=== PATIENT | male | born 1945 | race Caucasian/White ===

== ENCOUNTER → 2017-12-17 06:28 | Outpatient (CLI) | payer MEDICARE, SELFPAY ==
--- NOTE | 2017-12-17 06:39 | NM_ITS ---
SPECT MYOCARDIAL PERFUSION SCAN, REST AND STRESS: EXERCISE STRESS: [facility] REVIEW QGS EF AND WALL MOTION EVALUATION: QPS - PERFUSION EVALUATION: HISTORY: SOB, Fatigue, HTN, DM PROCEDURE: Rest imaging performed after administration of10.07 millicuries Tc MIBI. Dose administered at6:45 a.m., with imaging thereafter. Stress imaging was then performed following5 minutes 30 seconds of exercise stress. The patient achieved a heart [id number] with projected heart rate of127 . Resting BP153/79 with stress 180/76. At maximum exercise stress,31.4 millicuries Tc MIBI administered at8:20 a.m. with [id number] minutes thereafter. FINDINGS: Perfusion Evaluation: The single slice spect images as well as the [facility] bull's-eye data summary were reviewed. Wall Motion and Ejection Fraction Evaluation: Gated SPECT review and analysis used to evaluate these features. There is a 58 % left ventricular ejection fraction. There seems to be good wall motion Stress images reveal severely decreased activity in the septum and apex and throughout the inferior wall. Rest images reveal slightly improved activity in all 3 areas. Gated images calculated ejection fraction of 58% with apical and inferior apical hypokinesis IMPRESSION: High risk abnormal stress test. 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
--- NOTE | 2017-12-17 07:47 | HMH.ITSHM ---
VALSARTAN MELOXICAM FENOFIBRATE SIMVASTATIN GLIMEPIRIDE METFORMIN TRESIBA RANITIDINE FINASTERIDE AMLODIPINE HYDROCHLOROTHIAZIDE CARVEDILOL
== END ==
PROVIDERS: Family Provider Internal Medicine Adolescent Medicine; PCP Internal Medicine Adolescent Medicine; Visit Provider Internal Medicine Adolescent Medicine
DX: R06.09 Other forms of dyspnea (principal)
CPT/HCPCS: 78452; 93017; A9502

== ENCOUNTER → 2019-01-20 07:42 | Outpatient (CLI) | payer MEDICARE, SELFPAY ==
--- NOTE | 2019-01-20 | CA_ITS ---
APPROVED REPORT Exam: Pharmacologic Technologist: Lisa Fitzpatrick, Ht: 5 ft 5 in Wt: 195 lbs BSA: 1.96 m2 HR: 65 bpm BP: 164/73 mmHg Indications: Shortness of Breath Medical History Medications: Amlodipine,,,,, Aspirin,,,,, Metformin,,,,, Glimepiride,,,,, Ranitidine,,,,, Carvedilol,,,,, Valsartan,,,,, FeNOfibrate,,,,, Finasteride,,,,, DiPHENHYDRAMINE,,,,, RoSUVASTATIN,,,,, Degludec,,,,, Stress Test Details Test: LEXISCAN HR Resting HR: 65 bpm Max Heart Rate (APMHR): 148 bpm Max HR Achieved: 88 bpm Target HR (85% APMHR): 125 bpm % of APMHR: 59 Recovery HR: 77 bpm BP Resting BP: 164/73 mmHg Max BP: 168/73 mmHg Recovery BP: 154.0/68.0 mmHg ECG Clinical Exercise duration: 04:02 min Highest Stage Achieved: Exercise capacity: 1.0 METs Stress ECG Conclusion Resting ECG: Normal sinus rhythm, PACs Symptoms: Mild shortness of air, malaise Arrhythmias/Ectopy: None ST-T Changes: No significant changes Conclusion: Unremarkable Lexiscan Stress. Myoview images reported separately. Electronically signed by : Bebeto Saxena, 01/23/2019 09:23:46
--- NOTE | 2019-01-20 07:44 | NM_ITS ---
APPROVED REPORT Exam: Nuclear Stress Test Indication: SOB, HTN, DM, Family hx, Pre op Patient Location: Outpatient Stress Tech: Lisa Amari [place] Tech:Saskia Eldridge, ARRT, RT (R)(N) Ht: 5 ft 5 in Wt: 195 lbs BSA: 1.96 m2 HR: 65 bpm BP: 164/73 mmHg BMI: 32.4 History: SOB, HTN, DM, Family hx, Pre op Procedure: Patient received a 0.4 mg of intravenous Lexiscan, resting heart rate 65 bpm, resting blood pressure 164/73 mmHg, with Lexiscan maximum heart rate achived was 88 bpm which is Less than 85 % of the maximum predicted heart rate and blood pressure was 168/73 mmHg. With Lexiscan, patient denied any complaint of chest pain. Electrocardiogram Resting electro cardiogram showed sinus rhythm, with Lexiscan there is less than 1.[address] segment depression noted from the baseline EKG. The EKG portion of the Lexiscan is nondiagnostic. Cardiac Stress and Resting SPECT Images: Cardiac Stress and Resting SPECT images were obtained using technetium 99m Myoview 29 mCi stress and 10 mCi at rest. Gated SPECT with analysis of segmental wall motion and calculation of the ejection fraction also done. Cardiac stress and resting SPECT images show uniform myocardial activity without segmental perfusion abnormality, computer derived ejection fraction is over 65% with no regional wall motion abnormality, right ventricle is normal size and contractility. Conclusion: 1. The EKG portion of the Lexiscan is nondiagnostic. 2. No scintigraphic evidence of reversible ischemia seen, computer derived ejection fraction is over 65% with no regional wall motion abnormality, right ventricle is normal size and contractility. 3. Normal Lexiscan Myoview study. Electronically signed by : Bebeto Saxena, 01/22/2019 15:58:20
--- NOTE | 2019-01-20 08:45 | CA_ITS ---
APPROVED REPORT EXAM: Comprehensive 2D, Doppler, and color-flow Echocardiogram Site Engineer: Tara Albert CRT Ht: 5 ft 5 in Wt: 198lbs BSA: 1.97 BP: 147/69 mmHg Indications: Pulmonary Hypertension, Shortness of Breath, CAD, Hyperlipidemia, Hypertension/HDD 2D Dimensions LVOT 2.00 cm (M/F) 1.5-2.5 M-Mode Dimensions RVDd 2.10 cm (0.9-2.6) LA Diam 4.10 cm (1.9-4.0) LVDd 4.80 cm (3.5-5.7) Ao Diam 3.50 cm (2.0-3.7) LVDs 2.80 cm (3.5-5.7) AV Cusp 2.00 cm (1.5-2.6) IVSd 1.60 cm (0.6-1.1) PWd 0.90 cm (0.6-1.1) EF (Teich) 72.60% FS 41.70% EDV (Teich) 108.00 mL ESV (Teich) 29.60 mL LV Diastology E/A Ratio 0.80 MED E' 5.46 (< 7 cm/sec) E'/MED E' Ratio 16.20 (>14) LAT E' 6.34 (<10 cm/sec) E/LAT E' Ratio 13.90 (>14) Aortic Valve AoV Peak Patrick. 153.00 (50-130 cm/s) AO Peak GR. 9.00 mmHg Mitral Valve MV E Max Patrick. 88.40 (40-130 cm/s) MV A Velocity 109.00 (40-130 cm/s) E/A Ratio 0.80 Pulmonary Valve PA Accel Time 123.00 (>120 msec) Tricuspid Valve TR P. Velocity 233.00 cm/s RAP Estimate 10.00 mmHg RVSP 32.00 mmHg Left Ventricle Left atrium is mildly enlarged, left ventricle is normal size, mild concentric left ventricular hypertrophy, visually estimated ejection fraction 55% with no regional wall motion abnormality, grade 1 diastolic dysfunction seen with tissue Doppler evidence of raise left atrial pressure. Right Ventricle Right atrium and right ventricle mildly enlarged with normal contractility. Aortic Valve Aortic valve is minimally thickened and fibrosed. There is no aortic stenosis or aortic insufficiency. Mitral Valve Mitral valve is grossly normal, there is mild mitral regurgitation. Tricuspid Valve There is mild tricuspid regurgitation noted, calculated right ventricular systolic pressure is 48 mmHg consistent with moderate pulmonary hypertension. Pulmonic Valve Pulmonic valve is poorly visualized. Great Vessels Aortic root is normal size. Pericardium No significant pericardial effusion noted. Conclusion 1. Biatrial enlargement, normal left ventricular size, mild concentric left ventricular hypertrophy, visually estimated ejection fraction 55% with no regional wall motion abnormality, grade 1 diastolic dysfunction seen with tissue Doppler evidence of raise left atrial pressure. 2. Mildly enlarged right ventricle with normal contractility. 3. Mild mitral and tricuspid regurgitation, calculated right ventricular systolic pressure is 48 mmHg consistent with moderate pulmonary hypertension. 4. No significant pericardial effusion noted. Electronically signed by : Bebeto Saxena, 01/23/2019 17:53:26
== END ==
PROVIDERS: PCP Internal Medicine Adolescent Medicine; Visit Provider Urology
DX: E11.9 Type 2 diabetes mellitus without complications (principal); I10 Essential (primary) hypertension; I11.9 Hypertensive heart disease without heart failure; I25.10 Atherosclerotic heart disease of native coronary artery without angina pectoris; I27.20 Pulmonary hypertension, unspecified; R06.02 Shortness of breath; Z01.818 Encounter for other preprocedural examination; Z87.891 Personal history of nicotine dependence; Z79.4 Long term (current) use of insulin; Z79.84 Long term (current) use of oral hypoglycemic drugs
CPT/HCPCS: 78452; 93017; 93306; A9502; J2785

== ENCOUNTER → 2019-01-28 14:14 | Outpatient (CLI) | payer MEDICARE, SELFPAY ==
--- NOTE | 2019-01-28 14:19 | XR_ITS ---
PROCEDURE: XR CHEST 2V CLINICAL HISTORY: OA, DENNISON, CAD, PRE OP Shortness of breath COMPARISON: No exams were available for comparison FINDINGS: Mild cardiomegaly without failure. The lungs are clear without infiltrates, suspicious nodules, or pleural effusions. There is a faint nodular opacity in the right lung base laterally at 5 mm and may be due to a granuloma. No acute bony findings. There are degenerative changes in the thoracic spine. IMPRESSION: Mild cardiomegaly, no acute finding Dictated by: Jose Manuel Dixon MD 01/28/2019 16:29 Electronically signed by Jose Manuel Dixon MD in [place] 01/28/2019 16:29
== END ==
PROVIDERS: PCP Internal Medicine Adolescent Medicine; Visit Provider Nurse Practitioner Family
DX: Z01.818 Encounter for other preprocedural examination (principal); M17.12 Unilateral primary osteoarthritis, left knee; R06.09 Other forms of dyspnea; I25.10 Atherosclerotic heart disease of native coronary artery without angina pectoris
CPT/HCPCS: 71046

== ENCOUNTER 2019-04-21 16:30 | Outpatient (RCR) | payer MEDICARE, SELFPAY | END 2019-05-05 09:50 | disposition home or self-care (01) | LOC: PT.CARL 16:30 | PROVIDERS: Visit Provider Orthopaedic Surgery | DX: M17.12 Unilateral primary osteoarthritis, left knee (principal); Z96.652 Presence of left artificial knee joint | CPT/HCPCS: 97014; 97110; 97112; 97116; 97140; 97163; G0283 ==

== ENCOUNTER → 2019-11-13 11:45 | Outpatient (CLI) | payer MEDICARE, SELFPAY ==
--- NOTE | 2019-11-13 11:53 | CA_ITS ---
APPROVED REPORT Bilateral Lower Extremity Venous Study for DVT. 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 Incidental findings of enlarged lymph nodes in groin and posterior knee Conclusion No evidence of DVT or superficial thrombophlebitis in the veins scanned of the right lower extremity. Electronically signed by : Jose Manuel Dixon MD 11/16/2019 16:56:54
== END ==
PROVIDERS: PCP Nurse Practitioner Family; Visit Provider Internal Medicine Adolescent Medicine
DX: M79.89 Other specified soft tissue disorders (principal); M79.604 Pain in right leg
CPT/HCPCS: 93971

== ENCOUNTER → 2020-03-14 13:01 | Outpatient (CLI) | payer MEDICARE, SELFPAY ==
--- NOTE | 2020-03-14 13:07 | XR_ITS ---
PROCEDURE: XR CHEST PORTABLE CLINICAL HISTORY: COVID OUTPATIENT Cough and congestion COMPARISON: DX XR CHEST 2V from 01/28/2019 FINDINGS: The cardiomediastinal silhouette and pulmonary vascularity are within normal limits. There is peripheral increased density in the left mid and lower lung zone consistent with pneumonia. There is also patchy density in the right midlung. Mild degenerative changes of the shoulders. IMPRESSION: Consolidation in the left mid and lower lung zone laterally and right midlung consistent with bilateral pneumonia. Suggest following till clear regarding left-sided density as other pathologies are not excluded. Dictated by: Jose Manuel Dixon MD 03/14/2020 13:49 Jose Manuel Dixon MD in [place] 03/14/2020 13:49
[2020-03-14 13:47] LABS: Basophils % 0.5 % (0.1-2.0); Eosinophils # 0.2 K/mm3 (0.0-0.4); Eosinophils % 2.2 % (0.1-12.0); Hematocrit 34.4 % (42.0-52.0); Lymphocytes # 0.7 K/mm3 (0.7-4.5); Mean Corpuscular HGB Conc 34.9 g/dL (31.8-35.4); Mean Corpuscular Hemoglobin 32.3 pg (27.0-31.2); Mean Corpuscular Volume 92.5 fl (80-94); Mean Platelet Volume 8.6 fl (7.4-10.4); Monocytes # 0.5 K/mm3 (0.1-1.0); Monocytes % 6.8 % (1.7-9.3); Neutrophils # 5.3 K/mm3 (1.8-7.8); Neutrophils % 79.6 % (37.0-80.0); Platelet Count 318 K/mm3 (142-424); Red Blood Count 3.71 M/mm3 (4.60-6.20); Red Cell Distribution Width 13.6 % (11.5-17.5); White Blood Count 6.7 K/mm3 (4.8-10.8)
[2020-03-14 13:55] LABS: Chloride 100 mmol/L (98-107); Potassium 4.7 mmoL/L (3.5-5.1); Sodium 137 mmol/L (136-145)
[2020-03-14 13:58] LABS: Alanine Aminotransferase 26 U/L (12-78); Albumin Level 3.9 g/dl (3.5-5.0); Albumin/Globulin Ratio 1.3 (1.1-1.8); Alkaline Phosphatase 50 U/L (38-126); Anion Gap 16.7 mEq/L (5-15); Aspartate Amino Transferase 41 U/L (17-59); Bilirubin,Total 0.7 mg/dl (0.2-1.3); Blood Urea Nitrogen 39 mg/dl (9-20); Calcium 9.3 mg/dl (8.4-10.2); Carbon Dioxide 25 mmol/L (22.0-30.0); Estimated Glomerular Filt Rate 40 ml/min (>60); GFR (African American) 48 ML/MIN (>60); Glucose 243 mg/dl (74-100); Total Protein,Serum 6.9 g/dl (6.3-8.2)
[2020-03-14 14:49] LABS: Erythrocyte Sedimentation Rate 122 mm/hr (0-20)
[2020-03-14 18:24] LABS: Coronavirus 19 IgG Antibody Positive (Negative)
[2020-03-14 18:27] LABS: Coronavirus 19 IgM Antibody Positive (Negative)
== END ==
PROVIDERS: PCP Nurse Practitioner Family; Visit Provider Internal Medicine Adolescent Medicine
DX: Z20.828 Contact with and (suspected) exposure to other viral communicable diseases (principal); U07.1 COVID-19; R05 Cough
CPT/HCPCS: 71045; 80053; 85025; 85651; 86328; U0003

== ENCOUNTER → 2020-09-21 15:09 | Outpatient (CLI) | payer MEDICARE, SELFPAY ==
[2020-09-21 15:43] LABS: Basophils # 0.1 K/mm3 (0-0.2); Eosinophils # 0.5 K/mm3 (0.0-0.4); Eosinophils % 6.1 % (0.1-12.0); Hematocrit 38.1 % (42.0-52.0); Hemoglobin 12.6 g/dL (14.1-18.0); Lymphocytes # 1.7 K/mm3 (0.7-4.5); Lymphocytes % 20.7 % (10-50); Mean Corpuscular HGB Conc 33.2 g/dL (31.8-35.4); Mean Corpuscular Volume 90.2 fl (80-94); Mean Platelet Volume 9.6 fl (7.4-10.4); Monocytes # 0.7 K/mm3 (0.1-1.0); Monocytes % 8.3 % (1.7-9.3); Neutrophils # 5.3 K/mm3 (1.8-7.8); Neutrophils % 63.9 % (37.0-80.0); Platelet Count 220 K/mm3 (142-424); Red Blood Count 4.22 M/mm3 (4.60-6.20); White Blood Count 8.3 K/mm3 (4.8-10.8)
[2020-09-21 16:08] LABS: Alanine Aminotransferase 36 U/L (12-78); Albumin Level 4.9 g/dl (3.5-5.0); Alkaline Phosphatase 58 U/L (38-126); Anion Gap 14.4 mEq/L (5-15); Aspartate Amino Transferase 40 U/L (17-59); Bilirubin,Total 0.5 mg/dl (0.2-1.3); Blood Urea Nitrogen 21 mg/dl (9-20); Calcium 9.8 mg/dl (8.4-10.2); Carbon Dioxide 27 mmol/L (22.0-30.0); Chloride 105 mmol/L (98-107); Chol/HDL Ratio 4.5 (1-3.5); Cholesterol 148 mg/dl (140-200); Estimated Glomerular Filt Rate 46 ml/min (>60); GFR (African American) 55 ML/MIN (>60); Globulin 2.5 g/dL (1.3-3.2); Glucose 112 mg/dl (74-100); HDL Cholesterol 33 mg/dl (40-60); Potassium 4.4 mmoL/L (3.5-5.1); Sodium 142 mmol/L (136-145); Total Protein,Serum 7.4 g/dl (6.3-8.2); Triglycerides 189 mg/dl (30-150); VLDL Cholesterol 38 mg/dL (0-40)
[2020-09-21 16:19] LABS: Direct LDL Cholesterol 82.05 mg/dL (100-129)
[2020-09-21 16:24] LABS: Hemoglobin A1C 8.2 % (4.0-6.0)
[2020-09-21 16:38] LABS: Prostate Specific Ag Screen 2.1 ng/ml (0.0-4.0)
[2020-09-22 12:26] LABS: 25-OH Vitamin D, Total 53.7 ng/mL (30-100)
== END ==
PROVIDERS: Visit Provider Nurse Practitioner Family
DX: I10 Essential (primary) hypertension (principal); E78.2 Mixed hyperlipidemia; E53.8 Deficiency of other specified B group vitamins; E55.9 Vitamin D deficiency, unspecified; E11.29 Type 2 diabetes mellitus with other diabetic kidney complication; N40.1 Benign prostatic hyperplasia with lower urinary tract symptoms; Z79.4 Long term (current) use of insulin; Z12.5 Encounter for screening for malignant neoplasm of prostate
CPT/HCPCS: 80053; 80061; 82306; 82652; 83036; 85025; G0103

== ENCOUNTER → 2020-11-08 09:19 | Outpatient (CLI) | payer MEDICARE, SELFPAY ==
--- NOTE | 2020-11-08 09:22 | CA_ITS ---
APPROVED REPORT EXAM: Comprehensive 2D, Doppler, and color-flow Echocardiogram Track Leader: Angelia Palacio RVT Ht: 5 ft 5 in Wt: 202lbs BSA: 1.99 BP: 123/60 mmHg Indications: SOA,HTN,HLD,EX SMOKER,CAD,DD,GERD,PHTN 2D Dimensions LVOT 2.06 cm (M/F) 1.5-2.5 LA Volume 35.10 mL LA Volume Index 17.72 mL/m2 (M/F) 16-34 M-Mode Dimensions RVDd 2.25 cm (0.9-2.6) LA Diam 4.16 cm (1.9-4.0) LVDd 4.75 cm (3.5-5.7) Ao Diam 3.09 cm (2.0-3.7) LVDs 2.90 cm (3.5-5.7) IVSd 1.37 cm (0.6-1.1) PWd 1.09 cm (0.6-1.1) EF (Teich) 69.30% FS 38.90% EDV (Teich) 104.90 mL TAPSE 3.05 (<1.7) ESV (Teich) 32.20 mL LV Diastology E Decel Time 333.00 (160-240 msec) E/A Ratio 0.7 MED E' 6.20 (< 7 cm/sec) E'/MED E' Ratio 14.69 (>14) LAT E' 6.00 (<10 cm/sec) E/LAT E' Ratio 15.18 (>14) Aortic Valve AO Peak GR. 10.70 mmHg Mitral Valve MV E Max Patrick. 91.00 (40-130 cm/s) MV A Velocity 127.00 (40-130 cm/s) E/A Ratio 0.72 MV Decel. Time 333.00 (160-240 ms) MV PHT 98.00 ms Pulmonary Valve PV Peak Velocity 78.00 (50-150 cm/s) Tricuspid Valve TR P. Velocity 247.00 cm/s RAP Estimate 10.00 mmHg RVSP 34.40 mmHg Left Ventricle Left atrium is mildly enlarged, left ventricle is normal size, mild concentric left ventricular hypertrophy, visually estimated ejection fraction 55% with no regional wall motion abnormality, grade 1 diastolic dysfunction seen with tissue Doppler evidence of raise left atrial pressure. Right Ventricle Right atrium and right ventricle are normal size and contractility. Aortic Valve Aortic valve is thickened and calcified without aortic stenosis or aortic insufficiency. Mitral Valve Mitral valve grossly normal, there is trace mitral regurgitation. Tricuspid Valve Tricuspid grossly normal, there is trace tricuspid regurgitation, tricuspid regurgitation jet velocity is inadequate for calculation of the right ventricular systolic pressure. Pulmonic Valve Pulmonic valve is poorly visualized. Great Vessels Aortic root is normal size. Pericardium No significant pericardial effusion noted. Conclusion 1. Mildly enlarged left atrium, normal left ventricular size, mild concentric left ventricular hypertrophy, visually estimated ejection fraction 55% with no regional wall motion abnormality, grade 1 diastolic dysfunction seen with tissue Doppler evidence of raise left atrial pressure. 2. Thickened and calcified aortic valve without aortic stenosis or aortic insufficiency. 3. Trace mitral and tricuspid regurgitation. 4. No significant pericardial effusion noted. Electronically signed by : Bebeto Saxena, 11/08/2020 21:36:49
== END ==
PROVIDERS: PCP Nurse Practitioner Family; Visit Provider Nurse Practitioner Family
DX: E11.9 Type 2 diabetes mellitus without complications (principal); E78.2 Mixed hyperlipidemia; I11.9 Hypertensive heart disease without heart failure; I25.10 Atherosclerotic heart disease of native coronary artery without angina pectoris; I27.20 Pulmonary hypertension, unspecified; R06.02 Shortness of breath; Z87.891 Personal history of nicotine dependence; Z79.4 Long term (current) use of insulin
CPT/HCPCS: 93306

== ENCOUNTER → 2021-04-12 20:19 | Outpatient (CLI) | payer MEDICARE, SELFPAY ==
[2021-04-12 20:47] LABS: Basophils # 0.1 K/mm3 (0-0.2); Basophils % 0.7 % (0.1-2.0); Eosinophils # 0.3 K/mm3 (0.0-0.4); Eosinophils % 3.6 % (0.1-12.0); Hematocrit 38.6 % (42.0-52.0); Hemoglobin 12.8 g/dL (14.1-18.0); Lymphocytes # 1.8 K/mm3 (0.7-4.5); Lymphocytes % 22.1 % (10-50); Mean Corpuscular Hemoglobin 31.3 pg (27.0-31.2); Mean Corpuscular Volume 94.7 fl (80-94); Mean Platelet Volume 9.6 fl (7.4-10.4); Monocytes # 0.5 K/mm3 (0.1-1.0); Monocytes % 6.7 % (1.7-9.3); Neutrophils # 5.3 K/mm3 (1.8-7.8); Neutrophils % 66.8 % (37.0-80.0); Platelet Count 259 K/mm3 (142-424); Red Blood Count 4.08 M/mm3 (4.60-6.20)
[2021-04-12 20:54] LABS: Alanine Aminotransferase 27 U/L (12-78); Albumin Level 4.4 g/dl (3.5-5.0); Albumin/Globulin Ratio 1.7 (1.1-1.8); Alkaline Phosphatase 65 U/L (38-126); Anion Gap 13.3 mEq/L (5-15); Aspartate Amino Transferase 55 U/L (17-59); Bilirubin,Total 0.3 mg/dl (0.2-1.3); Blood Urea Nitrogen 28 mg/dl (9-20); Calcium 9.6 mg/dl (8.4-10.2); Carbon Dioxide 28 mmol/L (22.0-30.0); Chloride 103 mmol/L (98-107); Estimated Glomerular Filt Rate 46 ml/min (>60); GFR (African American) 55 ML/MIN (>60); Globulin 2.6 g/dL (1.3-3.2); Glucose 195 mg/dl (74-100); Potassium 4.3 mmoL/L (3.5-5.1); Sodium 140 mmol/L (136-145)
[2021-04-12 21:13] LABS: Hemoglobin A1C 7.8 % (4.0-6.0)
[2021-04-12 21:43] LABS: Vitamin B12 680 pg/mL (239-931)
== END ==
PROVIDERS: Visit Provider Nurse Practitioner Family
DX: E11.9 Type 2 diabetes mellitus without complications (principal); E53.8 Deficiency of other specified B group vitamins; E55.9 Vitamin D deficiency, unspecified; Z79.4 Long term (current) use of insulin
CPT/HCPCS: 80053; 82306; 82607; 83036; 85025

== ENCOUNTER 2021-10-06 06:43 | Observation (INO) | payer MEDICARE, SELFPAY ==
[2021-10-06] VITALS (8 sets, daily range): BP systolic 167–177; BP diastolic 54–87; PULSE 59–101; RESP 15–21; TEMP 36.4–37; O2SAT 93–99; BMI 36.6; BMI 32.4
--- NOTE | 2021-10-06 06:56 | CT_ITS ---
FINAL REPORT CLINICAL HISTORY: abd pain/left flank pain FINDINGS: CT OF THE ABDOMEN AND PELVIS WITH CONTRAST Axial CT images of the abdomen and pelvis were obtained after the administration of IV contrast. Coronal reformatted images were also obtained and reviewed.This study was performed with techniques to keep radiation doses as low as reasonably achievable (ALARA). Individualized dose reduction techniques using automated exposure control or adjustment of mA and/or kV according to the patient's size were employed. Abdomen: There is mild bibasilar atelectasis. The heart is normal in size. The liver has an unremarkable appearance, without evidence of mass or biliary ductal dilatation. The spleen is unremarkable. No adrenal mass is present. The pancreas has an unremarkable appearance. There is moderate left hydronephrosis secondary to a 3 mm proximal left ureteral stone seen at the L3-4 level. The aorta is normal in caliber. There is no free fluid or adenopathy. No mass or abnormal fluid collection is seen. Pelvis: The appendix normal. The urinary bladder is unremarkable. No inflammatory process is seen. There is no evidence of mass or adenopathy. There is no evidence of bowel obstruction. The prostate is diffusely enlarged. IMPRESSION: Left ureteral stone with hydronephrosis. Diffusely enlarged prostate. Reviewed, Interpreted and Dictated by Gabino Denny III, MD Transcribed by Monae Verdugo Authenticated by Gabino Denny III, MD on 10/06/2021 08:54:35 AM [facility]
--- NOTE | 2021-10-06 07:05 | PC.NURSE ---
up to bathroom
[2021-10-06 07:09] LABS: Basophils # 0.1 K/mm3 (0-0.2); Basophils % 1.5 % (0.1-2.0); Eosinophils # 0.3 K/mm3 (0.0-0.4); Eosinophils % 3.1 % (0.1-12.0); Hematocrit 40.5 % (42.0-52.0); Hemoglobin 13.6 g/dL (14.1-18.0); Lymphocytes # 1.3 K/mm3 (0.7-4.5); Lymphocytes % 15.7 % (10-50); Mean Corpuscular HGB Conc 33.5 g/dL (31.8-35.4); Mean Corpuscular Hemoglobin 31.2 pg (27.0-31.2); Mean Corpuscular Volume 93.1 fl (80-94); Mean Platelet Volume 8.8 fl (7.4-10.4); Monocytes # 0.6 K/mm3 (0.1-1.0); Monocytes % 7.2 % (1.7-9.3); Neutrophils % 72.5 % (37.0-80.0); Platelet Count 244 K/mm3 (142-424); Red Blood Count 4.35 M/mm3 (4.60-6.20); Red Cell Distribution Width 14.5 % (11.5-17.5); White Blood Count 8.3 K/mm3 (4.8-10.8)
[2021-10-06 07:17] LABS: Microscopic, Urine URINE MICROSCOPIC (MICROSCOPIC)
--- NOTE | 2021-10-06 07:17 | ECG_ITS ---
APPROVED REPORT Exam: Resting ECG HR:57 bpm ECG Measurements Heart Rate 57 AXES [place] 176 P 26 QRSd 98 QRS -26 QT 430 T 27 QTc 425 Conclusion SINUS BRADYCARDIA WITH SINUS ARRHYTHMIA BORDERLINE LEFT AXIS DEVIATION [QRS AXIS < -20] BORDERLINE ECG UNCONFIRMED REPORT Electronically signed by : Chema Garcias MD 10/07/2021 16:01:35
[2021-10-06 07:18] LABS: Alanine Aminotransferase 43 U/L (12-78); Albumin Level 4.9 g/dl (3.5-5.0); Albumin/Globulin Ratio 1.6 (1.1-1.8); Alkaline Phosphatase 70 U/L (38-126); Amylase 56 U/L (30-110); Anion Gap 15.1 mEq/L (5-15); Aspartate Amino Transferase 44 U/L (17-59); Bilirubin,Total 0.3 mg/dl (0.2-1.3); Blood Urea Nitrogen 26 mg/dl (9-20); Calcium 10.3 mg/dl (8.4-10.2); Carbon Dioxide 25 mmol/L (22.0-30.0); Chloride 107 mmol/L (98-107); Creatinine Clearance Estimated 56 mL/min (50-200); Estimated Glomerular Filt Rate 42 ml/min (>60); GFR (African American) 51 ML/MIN (>60); Glucose 204 mg/dl (74-100); Lipase 176 U/L (23-300); Potassium 4.1 mmoL/L (3.5-5.1); Sodium 143 mmol/L (136-145); Total Protein,Serum 7.9 g/dl (6.3-8.2)
[2021-10-06 07:19] LABS: Lactic Acid 1.7 mmol/L (0.7-2.1)
[2021-10-06 07:22] LABS: Appearance,Urine CLEAR (Clear); Bilirubin,Urine Negative (Negative); Blood, Urine TRACE-I (Negative); Color,Urine YELLOW (Yellow); Glucose,Urine (UA) 1+ (Negative); Ketones,Urine Negative (Negative); Leukocyte Esterase,Urine Negative (Negative); Nitrate,Urine Negative (Negative); Protein,Urine 1+ (Negative); Specific Gravity, Urine 1.015 (1.005-1.030); Urobilinogen,Urine 0.2 EU/dl (0.2)
[2021-10-06 07:31] LABS: Troponin I < 0.01 ng/ml (0.00-0.034)
[2021-10-06 07:35] LABS: Procalcitonin 0.068 ng/mL (0.0-2.0)
--- NOTE | 2021-10-06 07:35 | HMH.EDNVD ---
ED Disposition Clinical Impression: Renal colic on left side Disposition: Admitted As Inpatient Condition on Discharge: Good Instructions: DI for Acute Abdominal Pain Referrals: Dilia Huizar APRN [Primary Care Provider] - - Critical Care Critical Care Time: No Attestation: On 10/06/21, the high probability of a clinically significant, sudden or life threatening deterioration of the following system(s) required my full and direct attention, intervention and personal management. The time I documented below is in addition to time spent performing reported procedures but includes the following listed in this critical care notation. Medical Decision Making - Medical Records Medical records reviewed: Yes: I reviewed the patient's medical records. - Stephon Inquiry Pt receiving controlled substance: No Vital Signs: 10/06/21 06:50 10/06/21 07:19 Temperature 97.7 F Temperature Source Oral Pulse Rate 59 L Pulse Rate [Right Brachial] 78 Respiratory Rate 17 16 Blood Pressure 171/61 H Blood Pressure [Right Arm] 177/54 H Blood Pressure Mean 97 Blood Pressure Mean [Right Arm] 95 Blood Pressure Source [Right Arm] Automatic Cuff Blood Pressure Position [Right Arm] Sitting 02 Sat by Pulse Oximetry 99 98 Oxygen Delivery Method Room Air Room Air - Lab Data Lab results reviewed: Yes: I reviewed the patient's lab results. Lab Results 10/06/21 06:56: WBC 8.3, RBC 4.35 L, Hgb 13.6 L, Hct 40.5 L, MCV 93.1, MCH 31.2, MCHC 33.5, RDW 14.5, Plt Count 244, MPV 8.8, Neut % (Auto) 72.5, Lymph % (Auto) 15.7, Davis % (Auto) 7.2, Eos % (Auto) 3.1, Baso % (Auto) 1.5, Neut # (Auto) 6.0, Lymph # (Auto) 1.3, Davis # (Auto) 0.6, Eos # (Auto) 0.3, Baso # (Auto) 0.1 10/06/21 06:56: Sodium 143, Potassium 4.1, Chloride 107, Carbon Dioxide 25, Anion Gap 15.1 H, BUN 26 H, Creatinine 1.60 H, Estimated Creat Clear 56, Estimated GFR 42 L, Est GFR ( Amer) 51 L, Glucose 204 H, Calcium 10.3 H, Total Bilirubin 0.3, AST 44, ALT 43, Alkaline Phosphatase 70, Troponin I < 0.01, Total Protein 7.9, Albumin 4.9, Globulin 3.0, Albumin/Globulin Ratio 1.6, Amylase 56, Lipase 176, Procalcitonin 0.068 10/06/21 06:56: Lactate 1.7 10/06/21 07:15: Urine Color Yellow, Urine Appearance Clear, Urine pH 7.0, Ur Specific [place] 1.015, Urine Protein 1+, Urine Glucose (UA) 1+, Urine Ketones Negative, Urine Blood Trace-i, Urine Nitrate Negative, Urine Bilirubin Negative, Urine Urobilinogen 0.2, Ur Leukocyte Esterase Negative, Urine RBC Occasional, Urine WBC Occasional, Ur Squamous Epith Cells Occasional, Urine Bacteria Trace Result diagrams: 10/06/21 06:56 10/06/21 06:56 Orders (Tests/Meds): ED MEDICATIONS Discontinued Medications Generic Name Dose Route Start Last Admin Trade Name Freq PRN Reason Stop Dose Admin Hydromorphone HCl 1 mg 10/06/21 07:36 10/06/21 07:10 Hydromorphone 2mg/Ml Syringe IV 10/06/21 07:37 1 mg ONCE ONE Administration Hydromorphone HCl 1 mg 10/06/21 08:27 10/06/21 08:29 Hydromorphone 2mg/Ml Syringe IV 10/06/21 08:28 1 mg ONCE ONE Administration Sodium Chloride 1,000 mls @ 999 mls/hr 10/06/21 07:00 10/06/21 07:00 Sod Chlor 0.9% 1000ml Bag IV 10/06/21 08:00 999 mls/hr .Q1H1M DAIANA Administration Ketorolac Tromethamine 30 mg 10/06/21 06:58 10/06/21 07:00 Ketorolac 30mg/Ml Vial IV 10/06/21 06:59 30 mg ONCE ONE Administration Ondansetron HCl 4 mg 10/06/21 06:58 10/06/21 07:00 Ondansetron 4mg/2ml Vial IV 10/06/21 06:59 4 mg ONCE ONE Administration Ondansetron HCl 4 mg 10/06/21 07:42 10/06/21 07:45 Ondansetron 4mg/2ml Vial IV 10/06/21 07:43 4 mg ONCE ONE Administration Promethazine HCl 25 mg 10/06/21 08:26 10/06/21 08:32 Promethazine Hcl 25mg/Ml 1ml Vial IV 10/06/21 08:27 25 mg ONCE ONE Administration Sodium Chloride 25 ml 10/06/21 08:26 10/06/21 08:33 Sodium Chloride 0.9% 25ml Bag IV 10/06/21 08:27 25 ml ONCE ONE Administration ORDERS
[2021-10-06 07:43] LABS: Bacteria,Urine Trace /lpf; RBC,Urine Occasional #/hpf (0-3); Squamous Epithelial Cell,Urine Occasional #/hpf (0-5); WBC,Urine Occasional #/hpf (0-3)
--- NOTE | 2021-10-06 08:57 | PC.NURSE ---
pt in bed, sleeping at this time. will continue to monitor
--- NOTE | 2021-10-06 09:06 | PC.NURSE ---
ER MD Zepeda speaking with Dr. Bonilla
--- NOTE | 2021-10-06 09:08 | PC.NURSE ---
notified care management of admission, spoke with tera. states pt will be an acute admission
--- NOTE | 2021-10-06 09:14 | PC.NURSE ---
contacted pt pcp office (dr. barnhart/arline) for medication list on pt. Spoke with marshall states she will fax it down
[2021-10-06 09:25] LABS: Coronavirus 19, PCR Not Detected (NotDetected); Influenza A, PCR Not Detected (NotDetected); Influenza B, PCR Not Detected (NotDetected)
--- NOTE | 2021-10-06 09:31 | HMH.PHAVTE ---
[facility] Pharmacy VTE Monitoring - Patient Demographics Admission date: 10/06/21 Report Date: 10/06/21 Time: 09:31 Allergies/Adverse Reactions: Patient Allergies No Known Allergies Allergy (Verified 04/10/21 11:03) Height: 1.65 m Weight: 99.79 kg Patient Problems: Current Active Problems (Last Updated 09/22/19 @ 13:13 by Angela Gardner RN) Renal colic on left side (Acute) - VTE Risk Labs: VTE Related Lab Results Hgb 13.6 g/dL (14.1-18.0) L 10/06/21 06:56 Hct 40.5 % (42.0-52.0) L 10/06/21 06:56 Plt Count 244 K/mm3 (142-424) 10/06/21 06:56 BUN 26 mg/dl (9-20) H 10/06/21 06:56 Creatinine 1.60 mg/dl (0.66-1.25) H 10/06/21 06:56 Estimated Creat Clear 56 mL/min (50-200) 10/06/21 06:56 Clinical Trial Participant: No - Prophylaxis VTE Prophylaxis Ordered?: Yes Types of VTE Prophylaxis: TEDS Knee High
--- NOTE | 2021-10-06 09:36 | HMH.PHAINT ---
verified home medication list using list from [facility]
--- NOTE | 2021-10-06 09:53 | PC.NURSE ---
report called to floor
--- NOTE | 2021-10-06 11:05 | HMH.CONS ---
*Admission Date: 10/06/21 *Reason for consult:: Left flank pain *History of present illness: 76-year-old white male with the acute onset of left flank pain this morning. He presented to the emergency room where a CT scan shows a 3 mm proximal left ureteral stone with hydronephrosis. Patient has had associated nausea. His pain is under better control and he was admitted for pain control. His white count is within normal limits. His creatinine is 1.6. Patient gives a prior history of kidney stone several years ago. [facility] History Medical History: Reports:: Diabetes Mellitus Type 2, Gastroesophageal Reflux Disease(GERD), Hyperlipidemia, Hypertension, Kidney Stones Denies:: Cancer, Diabetes Mellitus Type 1, Internal Pacemaker, MRSA, Seizures *Have you ever received a pneumonia vaccine?: Yes *Have you received a flu vaccine this season?: Yes Other Surgeries: Yes: Hernia Repair. No: Pacemaker Amputation: No Fractures: No - *Social History Smoking Status: Former smoker Tobacco Type: cigarettes #Yrs smoked (if former smoker): 20 Alcohol Intake: never Alcohol Intake Frequency:: other Substance Use Type: denies use *Occupational Status:: retired Housing: house Household Members: children *Travel in the last 8 weeks: None Family Hx:: Diabetes Review of Systems - Review of Systems Review of systems:: pertinent systems reviewed and negative unless documented below - *Neurologic Denies seizure-like activity Meds Home Medications Medication Instructions Recorded Confirmed Type amlodipine 10 mg tablet 10 mg PO DAILY tab 12/23/17 10/06/21 History carvedilol 25 mg tablet 25 mg PO BID 12/23/17 10/06/21 History fenofibrate nanocrystallized 145 145 mg PO DAILY tab 12/23/17 10/06/21 History mg tablet metformin 1,000 mg tablet 1,000 mg PO BID 12/23/17 10/06/21 History glimepiride 4 mg tablet 4 mg PO BID tab 07/15/18 10/06/21 History rosuvastatin 20 mg tablet 20 mg PO DAILY 01/13/19 10/06/21 History cetirizine 10 mg tablet 10 mg PO DAILYP PRN tab 09/22/19 10/06/21 History famotidine 40 mg tablet 40 mg PO DAILY tab 09/22/19 10/06/21 History losartan 100 mg tablet 100 mg PO DAILY 04/13/20 10/06/21 History Aspirin [Low Dose Aspirin EC] 81 mg PO DAILY 10/06/21 10/06/21 History Dutasteride 0.5 mg PO DAILY 10/06/21 10/06/21 History hydroCHLOROthiazide [HCTZ 25mg 12.5 mg PO DAILY 10/06/21 10/06/21 History tab] Allergies Allergy/AdvReac Type Severity Reaction Status Date / Time No Known Allergies Allergy Verified 04/10/21 11:03 Exam Vital signs and Labs for Last 24 Hours: Temp Pulse Resp BP Pulse Ox 98.6 F 77 16 172/87 H 94 L 10/06/21 10:10 10/06/21 10:10 10/06/21 10:10 10/06/21 10:10 10/06/21 10:08 Laboratory Results - last 24 hr 10/06/21 06:56: WBC 8.3, RBC 4.35 L, Hgb 13.6 L, Hct 40.5 L, MCV 93.1, MCH 31.2, MCHC 33.5, RDW 14.5, Plt Count 244, MPV 8.8, Neut % (Auto) 72.5, Lymph % (Auto) 15.7, [place] % (Auto) 7.2, Eos % (Auto) 3.1, Baso % (Auto) 1.5, Neut # (Auto) 6.0, Lymph # (Auto) 1.3, [place] # (Auto) 0.6, Eos # (Auto) 0.3, Baso # (Auto) 0.1 10/06/21 06:56: Sodium 143, Potassium 4.1, Chloride 107, Carbon Dioxide 25, Anion Gap 15.1 H, BUN 26 H, Creatinine 1.60 H, Estimated Creat Clear 56, Estimated GFR 42 L, Est GFR ( Amer) 51 L, Glucose 204 H, Calcium 10.3 H, Total Bilirubin 0.3, AST 44, ALT 43, Alkaline Phosphatase 70, Troponin I < 0.01, Total Protein 7.9, Albumin 4.9, Globulin 3.0, Albumin/Globulin Ratio 1.6, Amylase 56, Lipase 176, Procalcitonin 0.068 10/06/21 06:56: Lactate 1.7 10/06/21 07:15: Urine Color Yellow, Urine Appearance Clear, Urine pH 7.0, Ur Specific [place] 1.015, Urine Protein 1+, Urine Glucose (UA) 1+, Urine Ketones Negative, Urine Blood Trace-i, Urine Nitrate Negative, Urine Bilirubin Negative, Urine Urobilinogen 0.2, Ur Leukocyte Esterase Negative, Urine RBC Occasional, Urine WBC Occasional, Ur Squamous Epith Cells Occasional, Urine Bacteria Trace 10/06/21 09:20: SARS-CoV-2 (PCR) No
--- NOTE | 2021-10-06 12:26 | HMH.HP ---
*Admission Date: 10/06/21 *Chief complaint: flank pain *History of present illness: 76-year-old male with remote history of kidney stones who presented to the ER with worsening abdominal pain, nausea. No fever, diarrhea, chest pain or shortness of breath. Imaging and labs obtained. CT positive for obstructing 3 mm ureteral stone in the proximal left ureter. Hydronephrosis noted. Patient admitted to medicine for further management of pain and urology consult. No elevation in white count at this time. Has chronic kidney disease with creatinine baseline approximately 1.5-1.7. Pain responding well to current treatment regimen. Patient seen after arriving to the floor. Urology consulted. He seems comfortable from a pain standpoint at this time and is resting well. Pain most prominent in the left abdomen. IV fluids running. Urinating frequently, being strained by nursing, no stones passed as of yet. [facility] History I have reviewed the patient's past medical history: Yes Medical History: Reports:: Diabetes Mellitus Type 2, Gastroesophageal Reflux Disease(GERD), Hyperlipidemia, Hypertension, Kidney Stones Denies:: Cancer, Diabetes Mellitus Type 1, Internal Pacemaker, MRSA, Seizures *Have you ever received a pneumonia vaccine?: Yes *Have you received a flu vaccine this season?: Yes Other Surgeries: Yes: Hernia Repair. No: Pacemaker Amputation: No Fractures: No - *Social History Smoking Status: Former smoker Tobacco Type: cigarettes #Yrs smoked (if former smoker): 20 Alcohol Intake: never Alcohol Intake Frequency:: other Substance Use Type: denies use *Occupational Status:: retired Housing: house Household Members: children *Travel in the last 8 weeks: None Family Hx:: Diabetes Review of Systems - Review of Systems Review of systems:: pertinent systems reviewed and negative unless documented below (14 point review of systems performed, pertinent positives and negatives as per HPI) - *Neurologic Denies seizure-like activity Meds Home Medications Medication Instructions Recorded Confirmed Type amlodipine 10 mg tablet 10 mg PO DAILY tab 12/23/17 10/06/21 History carvedilol 25 mg tablet 25 mg PO BID 12/23/17 10/06/21 History fenofibrate nanocrystallized 145 145 mg PO DAILY tab 12/23/17 10/06/21 History mg tablet metformin 1,000 mg tablet 1,000 mg PO BID 12/23/17 10/06/21 History glimepiride 4 mg tablet 4 mg PO BID tab 07/15/18 10/06/21 History rosuvastatin 20 mg tablet 20 mg PO DAILY 01/13/19 10/06/21 History cetirizine 10 mg tablet 10 mg PO DAILYP PRN tab 09/22/19 10/06/21 History famotidine 40 mg tablet 40 mg PO DAILY tab 09/22/19 10/06/21 History losartan 100 mg tablet 100 mg PO DAILY 04/13/20 10/06/21 History Aspirin [Low Dose Aspirin EC] 81 mg PO DAILY 10/06/21 10/06/21 History Dutasteride 0.5 mg PO DAILY 10/06/21 10/06/21 History hydroCHLOROthiazide [HCTZ 25mg 12.5 mg PO DAILY 10/06/21 10/06/21 History tab] Allergies Allergy/AdvReac Type Severity Reaction Status Date / Time No Known Allergies Allergy Verified 04/10/21 11:03 Exam Vital signs and Labs for Last 24 Hours: Temp Pulse Resp BP Pulse Ox 98.6 F 77 16 172/87 H 94 L 10/06/21 10:10 10/06/21 10:10 10/06/21 10:10 10/06/21 10:10 10/06/21 10:08 Laboratory Results - last 24 hr 10/06/21 06:56: WBC 8.3, RBC 4.35 L, Hgb 13.6 L, Hct 40.5 L, MCV 93.1, MCH 31.2, MCHC 33.5, RDW 14.5, Plt Count 244, MPV 8.8, Neut % (Auto) 72.5, Lymph % (Auto) 15.7, [place] % (Auto) 7.2, Eos % (Auto) 3.1, Baso % (Auto) 1.5, Neut # (Auto) 6.0, Lymph # (Auto) 1.3, [place] # (Auto) 0.6, Eos # (Auto) 0.3, Baso # (Auto) 0.1 10/06/21 06:56: Sodium 143, Potassium 4.1, Chloride 107, Carbon Dioxide 25, Anion Gap 15.1 H, BUN 26 H, Creatinine 1.60 H, Estimated Creat Clear 56, Estimated GFR 42 L, Est GFR ( Amer) 51 L, Glucose 204 H, Calcium 10.3 H, Total Bilirubin 0.3, AST 44, ALT 43, Alkaline Phosphatase 70, Troponin I < 0.01, Total Protein 7.9, Albumin 4.9, Glob
[2021-10-07 04:00] VITALS: BP 162/80; PULSE 78; RESP 16; TEMP 36.9; O2SAT 97
--- NOTE | 2021-10-07 05:01 | PC.NURSE ---
Patient has rested throughout shift. Patient has not passed stone thus far. Patient has complained of lt flank pain x1 medicated per JUL.
[2021-10-07 05:24] VITALS: BMI 32.5
[2021-10-07 07:32] VITALS: BP 142/69; PULSE 84; RESP 16; TEMP 36.9; O2SAT 96
[2021-10-07 07:56] LABS: Basophils % 0.4 % (0.1-2.0); Eosinophils # 0.1 K/mm3 (0.0-0.4); Eosinophils % 0.7 % (0.1-12.0); Hematocrit 36.4 % (42.0-52.0); Lymphocytes # 1.4 K/mm3 (0.7-4.5); Lymphocytes % 12.9 % (10-50); Mean Corpuscular HGB Conc 33.6 g/dL (31.8-35.4); Mean Corpuscular Hemoglobin 31.4 pg (27.0-31.2); Mean Corpuscular Volume 93.3 fl (80-94); Mean Platelet Volume 9.7 fl (7.4-10.4); Monocytes # 0.9 K/mm3 (0.1-1.0); Monocytes % 7.8 % (1.7-9.3); Neutrophils # 8.7 K/mm3 (1.8-7.8); Neutrophils % 78.2 % (37.0-80.0); Platelet Count 208 K/mm3 (142-424); Red Cell Distribution Width 14.6 % (11.5-17.5); White Blood Count 11.1 K/mm3 (4.8-10.8)
[2021-10-07 08:00] LABS: Chloride 108 mmol/L (98-107); Potassium 3.7 mmoL/L (3.5-5.1); Sodium 139 mmol/L (136-145)
[2021-10-07 08:03] LABS: Anion Gap 10.7 mEq/L (5-15); Blood Urea Nitrogen 21 mg/dl (9-20); Carbon Dioxide 24 mmol/L (22.0-30.0); Creatinine Clearance Estimated 42 mL/min (50-200); Estimated Glomerular Filt Rate 35 ml/min (>60); GFR (African American) 42 ML/MIN (>60)
[2021-10-07 08:04] LABS: Calcium 8.9 mg/dl (8.4-10.2); Glucose 165 mg/dl (74-100)
[2021-10-07 08:07] LABS: Hemoglobin 12.4 g/dL (14.1-18.0)
--- NOTE | 2021-10-07 09:39 | HMH.ACPN2 ---
Internal Medicine - PN: Subj *Date: 10/07/21 *Time: 09:39 Interval history: Mr. Gutierres is done well overnight. Denies any fever. Pain has improved and he has had no pain medication since approximately 8 or 9 PM last night. Tolerating most of his breakfast today. No nausea or vomiting. Straining urine with no stone found as of yet. Stable on room air. Overall seeing improvement. Reviewed labs this morning showing slight worsening of kidney function and elevation of white cell count. Exam Vital signs and Labs for Last 24 Hours: Temp Pulse Resp BP Pulse Ox 98.4 F 84 16 142/69 H 96 10/07/21 07:32 10/07/21 07:32 10/07/21 07:32 10/07/21 07:32 10/07/21 07:32 Laboratory Results - last 24 hr 10/06/21 09:20: SARS-CoV-2 (PCR) Not detected, Influenza A Untype (PCR) Not detected, Influenza Type B (PCR) Not detected 10/07/21 06:20: WBC 11.1 H D, RBC 3.90 L, Hgb 12.4 L, Hct 36.4 L, MCV 93.3, MCH 31.4 H, MCHC 33.6, RDW 14.6, Plt Count 208, MPV 9.7, Neut % (Auto) 78.2, Lymph % (Auto) 12.9, [place] % (Auto) 7.8, Eos % (Auto) 0.7, Baso % (Auto) 0.4, Neut # (Auto) 8.7 H, Lymph # (Auto) 1.4, [place] # (Auto) 0.9, Eos # (Auto) 0.1, Baso # (Auto) 0.0 10/07/21 06:20: Sodium 139, Potassium 3.7, Chloride 108 H, Carbon Dioxide 24, Anion Gap 10.7, BUN 21 H, Creatinine 1.90 H, Estimated Creat Clear 42, Estimated GFR 35 L, Est GFR ( Amer) 42 L, Glucose 165 H, Calcium 8.9 I & O for Last 24 hours: Intake & Output 10/04/21 10/05/21 10/06/21 10/07/21 23:59 23:59 23:59 23:59 Intake Total 480 / 480 360 / 360 Output Total 600 / 800 700 / 700 Balance -120 / -320 -340 / -340 Weight 88.479 kg 88.479 kg Narrative: - Constitutional NAD, obese, stable on room air. - *Routine HEENT Exam Head: Present: normocephalic Eye: Present: EOMI, PERRL ENT: Present: mucous membranes moist - *Routine Neck Exam Present: supple. Absent: lymphadenopathy - *Routine Respiratory Exam Present: CTA bilaterally - *Routine Cardiovascular Exam Present: RRR - *Routine Abdominal Exam Present: soft, normoactive bowel sounds, improvement in left abdominal tenderness. No CVA tenderness on exam today - *Routine Extremities Exam Absent: cyanosis, clubbing, edema - *Routine Skin Exam Present: warm. 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: with middle or intermediate school principal use Diabetes mellitus complication status: without complication Qualified Code(s): E11.9 - Type 2 diabetes mellitus without complications; Z79.4 - penitentiary (current) use of insulin Category: Medical Code(s): E11.9 - Type 2 diabetes mellitus without complications (4) HTN (hypertension) Status: Chronic Qualifiers: Hypertension type: essential hypertension Qualified Code(s): I10 - Essential (primary) hypertension Category: Medical Code(s): I10 - Essential (primary) hypertension - Assessment and plan all Dx Assessment and Plan for all problems:: 76-year-old male with history of hypertension, diabetes, BPH and remote history of kidney stones. Has obstructing left ureteral stone. Consulted urology, appreciate their recommendations. Problems addressed as follows: Hydronephrosis Obstructing ureteral stone -Stone 3 mm in size, high probability of passing spontaneously. We will continue tamsulosin to relax ureter. -Continue IV fluids to promote urine production and flushing of stone -Urology following along, appreciate their recs -Straining urine -Pain control as ordered Diabetes -Sliding scale insulin and fin
[2021-10-07 09:58] LABS: POC Glucose,Bedside 206 (70-110)
[2021-10-07 09:58] LABS: POC Glucose,Bedside 144 (70-110)
[2021-10-07 09:58] LABS: POC Glucose,Bedside 177 (70-110)
[2021-10-07 09:58] LABS: POC Glucose,Bedside 201 (70-110)
[2021-10-07 11:14] LABS: POC Glucose,Bedside 226 (70-110)
[2021-10-07 15:11] VITALS: BP 169/94; PULSE 66; RESP 18; TEMP 36.8; O2SAT 96
[2021-10-07 16:00] VITALS: BP 168/88
[2021-10-07 16:53] LABS: POC Glucose,Bedside 171 (70-110)
--- NOTE | 2021-10-07 17:19 | PC.NURSE ---
Pt has rested throughout shift. Urine has been strained several times with no stone visible. No new complaints, pt has had no complaints of pain this shift. Call light in reach and working, will continue to monitor.
[2021-10-07 20:30] VITALS: BP 187/92; PULSE 78; RESP 20; TEMP 36.8; O2SAT 96
[2021-10-07 20:42] LABS: POC Glucose,Bedside 177 (70-110)
[2021-10-07 21:29] VITALS: BP 166/90
--- NOTE | 2021-10-08 03:46 | PC.NURSE ---
Addendum entered by Berenice Holcomb RN 10/08/21 04:55: Pt had an elevated BP at beginning of my shift, retook BP 1 hr after scheduled medication administration. BP improved, but still elevated. See vitals tab. Original Note: Pt is urinating clear, pale urine via urinal w/ good urine output. Straining urine w/ no evidence of calculi thus far. Pt denies pain at this time. Pt states he may need a stool softener, his last bowel movement was 10/06/21. Will pass this info on to next shift. IV infusing per order. Call light in reach. No needs or complaints voiced at this time.
[2021-10-08 04:00] VITALS: BP 149/74; PULSE 80; RESP 18; TEMP 36.5; O2SAT 97; BMI 33.3
[2021-10-08 06:02] LABS: POC Glucose,Bedside 146 (70-110)
[2021-10-08 07:18] LABS: Anion Gap 10.9 mEq/L (5-15); Blood Urea Nitrogen 23 mg/dl (9-20); Calcium 8.8 mg/dl (8.4-10.2); Carbon Dioxide 22 mmol/L (22.0-30.0); Chloride 110 mmol/L (98-107); Creatinine Clearance Estimated 41 mL/min (50-200); Estimated Glomerular Filt Rate 33 ml/min (>60); GFR (African American) 40 ML/MIN (>60); Glucose 149 mg/dl (74-100); Potassium 3.9 mmoL/L (3.5-5.1); Sodium 139 mmol/L (136-145)
[2021-10-08 07:31] LABS: Basophils # 0.1 K/mm3 (0-0.2); Basophils % 0.6 % (0.1-2.0); Eosinophils # 0.2 K/mm3 (0.0-0.4); Hematocrit 39.1 % (42.0-52.0); Hemoglobin 13.1 g/dL (14.1-18.0); Lymphocytes # 1.2 K/mm3 (0.7-4.5); Lymphocytes % 13.7 % (10-50); Mean Corpuscular HGB Conc 33.5 g/dL (31.8-35.4); Mean Corpuscular Hemoglobin 31.1 pg (27.0-31.2); Mean Corpuscular Volume 92.8 fl (80-94); Mean Platelet Volume 9.7 fl (7.4-10.4); Monocytes # 0.6 K/mm3 (0.1-1.0); Neutrophils # 6.9 K/mm3 (1.8-7.8); Neutrophils % 76.8 % (37.0-80.0); Platelet Count 206 K/mm3 (142-424); Red Blood Count 4.21 M/mm3 (4.60-6.20); Red Cell Distribution Width 14.5 % (11.5-17.5)
[2021-10-08 08:00] VITALS: BP 170/89; PULSE 82; RESP 17; TEMP 36.7; O2SAT 97
[2021-10-08 09:58] VITALS: BMI 33.3
[2021-10-08 11:31] LABS: POC Glucose,Bedside 206 (70-110)
[2021-10-08 15:49] VITALS: BP 169/90; PULSE 75; RESP 16; TEMP 36.8; O2SAT 96
--- NOTE | 2021-10-08 17:10 | PC.NURSE ---
pt is aox4, able to make needs known to staff, urinating clear yellow urine, urine is being strained by staff, no evidence of calculi noted thus far. he has not required o2 support this shift.
--- NOTE | 2021-10-08 18:56 | HMH.ACPN2 ---
Internal Medicine - PN: Subj *Date: 10/08/21 *Time: 18:56 Interval history: Patient states that his breathing is good, has no chest pain, and feels like he is making good urine output, but no stone has been captured in the straining devices. He also continues to have left-sided lower flank pain into his groin. He feels most of his problems, however, are related to a lack of bowel movement because of pain medicines. He normally has 2 large bowel movements a day. He states he had some BMs this morning. Exam Vital signs and Labs for Last 24 Hours: Temp Pulse Resp BP Pulse Ox 98.2 F 75 16 169/90 H 96 10/08/21 15:49 10/08/21 15:49 10/08/21 15:49 10/08/21 15:49 10/08/21 15:49 Laboratory Results - last 24 hr 10/07/21 20:25: POC Glucose 177 H 10/08/21 05:55: POC Glucose 146 H 10/08/21 06:15: WBC 9.0, RBC 4.21 L, Hgb 13.1 L, Hct 39.1 L, MCV 92.8, MCH 31.1, MCHC 33.5, RDW 14.5, Plt Count 206, MPV 9.7, Neut % (Auto) 76.8, Lymph % (Auto) 13.7, [place] % (Auto) 7.0, Eos % (Auto) 2.0, Baso % (Auto) 0.6, Neut # (Auto) 6.9, Lymph # (Auto) 1.2, [place] # (Auto) 0.6, Eos # (Auto) 0.2, Baso # (Auto) 0.1 10/08/21 06:15: Sodium 139, Potassium 3.9, Chloride 110 H, Carbon Dioxide 22, Anion Gap 10.9, BUN 23 H, Creatinine 2.00 H, Estimated Creat Clear 41, Estimated GFR 33 L, Est GFR ( Amer) 40 L, Glucose 149 H, Calcium 8.8 10/08/21 11:19: POC Glucose 206 H I & O for Last 24 hours: Intake & Output 10/06/21 10/07/21 10/08/21 10/09/21 11:59 11:59 11:59 11:59 Intake Total 840 / 840 2580 / 2580 360 / 360 Output Total 1300 / 1300 1600 / 1600 Balance -460 / -460 980 / 980 360 / 360 Weight 195 lb 1 oz 195 lb 1.005 oz 200 lb 2.17 oz - Constitutional no acute distress - *Routine HEENT Exam Head: Present: normocephalic Eye: Present: EOMI, PERRL ENT: Present: mucous membranes moist - *Routine Neck Exam Present: supple. Absent: lymphadenopathy - *Routine Respiratory Exam Present: CTA bilaterally - *Routine Cardiovascular Exam Present: RRR - *Routine Abdominal Exam Present: soft, distended. Absent: tenderness Comments: Very minimal left flank tenderness. Abdomen is distended but nontender. - *Routine Extremities Exam Absent: cyanosis, clubbing, edema - *Routine Skin Exam Present: warm. 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 Address constipation with Dulcolax and with mag citrate if no results. 2. Urinary stone-continue to strain urine. 3. Creatinine is climbed a bit this morning. Will hydrate overnight and increase fluids slightly. Try to relieve bowel constipation issues to see if this helps urine flow and watch creatinine tomorrow.
[2021-10-08 20:00] VITALS: BP 190/88; PULSE 75; RESP 17; TEMP 36.8; O2SAT 95
[2021-10-08 21:37] LABS: POC Glucose,Bedside 181 (70-110)
[2021-10-08 22:28] VITALS: BP 147/80; PULSE 68
--- NOTE | 2021-10-08 22:28 | PC.NURSE ---
retake 1 hr after medication adminstration
[2021-10-09 00:52] LABS: POC Glucose,Bedside 167 (70-110)
[2021-10-09 04:00] VITALS: BP 158/107; PULSE 80; RESP 17; TEMP 36.7; O2SAT 93
--- NOTE | 2021-10-09 04:06 | PC.NURSE ---
Pt is voiding clear, pale urine via urinal. Urine is being strained by staff, with no evidence of calculi thus far. Pt continually denies any pain. Pt has c/o constipation. Pt received dulcolax around 1900, and has mag citrate ordered if needed (pt states he wants to wait and see if dulcolax works before trying the other). Pt called out with c/o nausea around 2330. He states his stomach has not felt good since taking the dulcolax. call box wirer contacted for new orders. Orders received. Nausea relieved after medication administration. Pt was able to have a BM around 0100. Since then pt has been resting fairly well. No other complaints or needs voiced at this time. Call light in reach.
[2021-10-09 05:00] VITALS: BP 158/88; BMI 33.7
[2021-10-09 06:48] LABS: Basophils % 0.4 % (0.1-2.0); Eosinophils # 0.2 K/mm3 (0.0-0.4); Eosinophils % 2.1 % (0.1-12.0); Hematocrit 38.3 % (42.0-52.0); Lymphocytes # 1.1 K/mm3 (0.7-4.5); Lymphocytes % 11.6 % (10-50); Mean Corpuscular HGB Conc 33.9 g/dL (31.8-35.4); Mean Corpuscular Hemoglobin 31.3 pg (27.0-31.2); Mean Corpuscular Volume 92.4 fl (80-94); Mean Platelet Volume 8.5 fl (7.4-10.4); Monocytes # 0.6 K/mm3 (0.1-1.0); Monocytes % 6.2 % (1.7-9.3); Neutrophils # 7.3 K/mm3 (1.8-7.8); Neutrophils % 79.8 % (37.0-80.0); Platelet Count 189 K/mm3 (142-424); Red Blood Count 4.15 M/mm3 (4.60-6.20); Red Cell Distribution Width 14.6 % (11.5-17.5); White Blood Count 9.2 K/mm3 (4.8-10.8)
[2021-10-09 06:49] LABS: Anion Gap 11.1 mEq/L (5-15); Blood Urea Nitrogen 23 mg/dl (9-20); Calcium 8.7 mg/dl (8.4-10.2); Carbon Dioxide 22 mmol/L (22.0-30.0); Chloride 109 mmol/L (98-107); Creatinine Clearance Estimated 46 mL/min (50-200); Estimated Glomerular Filt Rate 37 ml/min (>60); GFR (African American) 45 ML/MIN (>60); Glucose 183 mg/dl (74-100); Potassium 4.1 mmoL/L (3.5-5.1); Sodium 138 mmol/L (136-145)
[2021-10-09 08:00] VITALS: BP 219/93; PULSE 80; RESP 20; TEMP 36.5; O2SAT 98
[2021-10-09 08:04] LABS: POC Glucose,Bedside 190 (70-110)
--- NOTE | 2021-10-09 08:22 | HMH.DCSUM ---
General - General Admission date:: 10/06/21 Discharge date: 10/09/21 HPI HPI: 76-year-old male with remote history of kidney stones who presented to the ER with worsening abdominal pain, nausea. No fever, diarrhea, chest pain or shortness of breath. Imaging and labs obtained. CT positive for obstructing 3 mm ureteral stone in the proximal left ureter. Hydronephrosis noted. Patient admitted to medicine for further management of pain and urology consult. No elevation in white count at this time. Has chronic kidney disease with creatinine baseline approximately 1.5-1.7. Pain responding well to current treatment regimen. Patient seen after arriving to the floor. Urology consulted. He seems comfortable from a pain standpoint at this time and is resting well. Pain most prominent in the left abdomen. IV fluids running. Urinating frequently, being strained by nursing, no stones passed as of yet. Hospital Course Hospital Course: Patient was admitted, urology consultation was obtained, recommended fluids and observation as the size of stone and location should pass spontaneously, patient did have evidence of constipation from opiates and he had problems with acute kidney injury superimposed on his chronic kidney disease. This was treated with IV fluids and observation over the last couple of days. This morning he feels much better, constipation has been improved with Dulcolax tablets and he has had the return to normal-his baseline-of creatinine. He feels good and wishes to be discharged home. His blood pressure was slightly high through the night, but this was associated with explosive bowel movements. Plan number to discharge home today. I will see him in the next 4 days in my office. We will have urology see him in 3 days. Antibiotics as noted. Given his kidney injury and his wish to abstain from opiates we will recommend Tylenol, 1000 mg 3 times daily for pain along with his ongoing prostate medication and ureteral dilation with Flomax. Objective Vital signs: Temp Pulse Resp BP Pulse Ox 97.7 F 80 20 219/93 H 98 10/09/21 08:00 10/09/21 08:00 10/09/21 08:00 10/09/21 08:00 10/09/21 08:00 no acute distress - *Routine HEENT Exam Head: Present: normocephalic Eye: Present: EOMI, PERRL ENT: Present: mucous membranes moist - *Routine Neck Exam Present: supple - *Routine Respiratory Exam Present: CTA bilaterally - *Routine Cardiovascular Exam Present: RRR - *Routine Abdominal Exam Present: soft, normoactive bowel sounds. Absent: tenderness - *Routine Extremities Exam Absent: cyanosis, clubbing, edema - *Routine Skin Exam Present: warm. Absent: rash - Detailed Eye Exam Eyelids: Bilateral normal inspection Results Labs on day of discharge: Labs from last 24 hours 10/09/21 10/09/21 10/09/21 06:30 06:30 05:27 WBC 9.2 RBC 4.15 L Hgb 13.0 L Hct 38.3 L MCV 92.4 MCH 31.3 H MCHC 33.9 RDW 14.6 Plt Count 189 MPV 8.5 Neut % (Auto) 79.8 Lymph % (Auto) 11.6 [place] % (Auto) 6.2 Eos % (Auto) 2.1 Baso % (Auto) 0.4 Neut # (Auto) 7.3 Lymph # (Auto) 1.1 [place] # (Auto) 0.6 Eos # (Auto) 0.2 Baso # (Auto) 0.0 Sodium 138 Potassium 4.1 Chloride 109 H Carbon Dioxide 22 Anion Gap 11.1 BUN 23 H Creatinine 1.80 H Estimated Creat Clear 46 Estimated GFR 37 L Est GFR ( Amer) 45 L Glucose 183 H POC Glucose 190 H Calcium 8.7 10/08/21 10/08/21 10/08/21 21:23 16:46 11:19 WBC RBC Hgb Hct MCV MCH MCHC RDW Plt Count MPV Neut % (Auto) Lymph % (Auto) [place] % (Auto) Eos % (Auto) Baso % (Auto) Neut # (Auto) Lymph # (Auto) [place] # (Auto) Eos # (Auto) Baso # (Auto) Sodium Potassium Chloride Carbon Dioxide Anion Gap BUN Creatinine Estimated Creat Clear Estimated GFR Est GFR (A
[2021-10-09 09:28] VITALS: BP 177/81
--- NOTE | 2021-10-11 13:04 | CARE MANAGER ---
Called and spoke with Mr. De Leno regarding post discharge status. Patient states that he is doing well. 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 He has 2 f/u appointments this week and plans to attend. Patient has no concerns at this time.
== END 2021-10-09 11:40 | disposition home or self-care (01) ==
LOC: ER 09:11 → 2ND 10-07 02:49
PROVIDERS: Internal Medicine Adolescent Medicine; Admitting Provider Internal Medicine Adolescent Medicine; Emergency Provider Emergency Medicine; PCP Nurse Practitioner Family; Visit Provider Internal Medicine Adolescent Medicine
DX: N18.30 Chronic kidney disease, stage 3 unspecified; I12.9 Hypertensive chronic kidney disease with stage 1 through stage 4 chronic kidney disease, or unspecified chronic kidney disease; N20.1 Calculus of ureter; Z20.822 Contact with and (suspected) exposure to COVID-19; E11.22 Type 2 diabetes mellitus with diabetic chronic kidney disease; Z79.899 Other long term (current) drug therapy; Z79.84 Long term (current) use of oral hypoglycemic drugs
CPT/HCPCS: 96365; G0378; 36415; 74176; 80048; 80053; 81001; 82150; 82962; 83605; 83690; 84145; 84484; 85025; 93005; 96375; 96376; 99285; C9803; J0696; J2405; U0003; U0005

== ENCOUNTER → 2021-10-12 14:28 | Outpatient (CLI) | payer MEDICARE, SELFPAY ==
--- NOTE | 2021-10-12 14:32 | XR_ITS ---
FINAL REPORT CLINICAL HISTORY: kidney stone follow up COMPARISON: Prior CT dated October 06, 2021. FINDINGS: A single supine view the abdomen was obtained. The bowel gas pattern is nonspecific but nonobstructive. There are no renal stones identified. Calcifications in the left pelvis are likely phleboliths. Osseous structures are within normal limits. IMPRESSION: Nonspecific but nonobstructive bowel gas pattern. No renal stones are identified. Reviewed, Interpreted and Dictated by Tanya Wisdom MD Transcribed by Lesli Teague Authenticated by Tanya Wisdom MD on 10/12/2021 03:54:32 PM [facility]
== END ==
PROVIDERS: PCP Nurse Practitioner Family; Visit Provider Urology
DX: N20.0 Calculus of kidney (principal)
CPT/HCPCS: 74018

== ENCOUNTER 2022-12-16 18:58 | Emergency (ER) | payer MEDICARE, SELFPAY ==
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
--- NOTE | 2022-12-16 18:58 | PC.NURSE ---
PT arrival to ED room 3
--- NOTE | 2022-12-16 19:01 | PC.NURSE ---
1 mg IV epi administered. pulse check. no pulse pt is still in asystole. CPR is resummed.
--- NOTE | 2022-12-16 19:03 | PC.NURSE ---
FSBS 110
--- NOTE | 2022-12-16 19:04 | PC.NURSE ---
pts son is bedside
--- NOTE | 2022-12-16 19:05 | PC.NURSE ---
pulse check, no pulse detected. pt is still in asystole. Dr. Mosley discussed pts status with the son. time of called at 190
--- NOTE | 2022-12-16 19:14 | PC.NURSE ---
notified HC radiological metallurgist at this time
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
--- NOTE | 2022-12-16 19:16 | PC.NURSE ---
contacting CHAITANYA at this time
--- NOTE | 2022-12-16 19:23 | PC.NURSE ---
family arrived and in room
--- NOTE | 2022-12-16 19:38 | PC.NURSE ---
HC sales operations specialist at
--- NOTE | 2022-12-16 19:38 | PC.NURSE ---
Mallorie from [facility] states she is going to call back in 10-15 minutes after speaking with her AOC on whether or not they are going to follow pt.
--- NOTE | 2022-12-16 19:48 | PC.NURSE ---
spoke with [facility] at [facility]. they state they are following for tissue.
--- NOTE | 2022-12-16 20:04 | PC.NURSE ---
manager golf states that organ donation is not an option.
--- NOTE | 2022-12-16 20:23 | PC.NURSE ---
spoke with Will at [facility] and communicated that the cork insulator helper denied tissue donation.
[2022-12-16 21:56] VITALS: BMI 33.7
--- NOTE | 2022-12-16 22:09 | PC.NURSE ---
pt departs with home staff to [place].
[2022-12-16 22:14] VITALS: BP 0/0; PULSE 0; RESP 0; TEMP -17.7; TEMP 0; O2SAT 0
== END 2022-12-16 22:20 | disposition expired ==
LOC: ER 22:20
PROVIDERS: Emergency Provider Student in an Organized Health Care Education/Training Program; PCP Nurse Practitioner Family
DX: I46.9 Cardiac arrest, cause unspecified (principal); I11.9 Hypertensive heart disease without heart failure; Z87.891 Personal history of nicotine dependence
CPT/HCPCS: 92950; 99285